=== PATIENT | male | born 1990 | race Caucasian/White ===

== ENCOUNTER 2023-10-24 13:00 | Emergency (ER) | payer MEDICAID ==
[~2023-10-24] VITALS: Ht 149.9 cm; Wt 70.0 kg
[2023-10-24 13:03] VITALS: O2SAT 98
[2023-10-24] MEDS: MORPHINE SULFATE 4 MG/ML INJ (FOR IV/IM USE) IV ONE (13:25)
[2023-10-24] MEDS: KETAMINE HCL 50 MG/ML 10ML IV ONE (13:45)
[2023-10-24 14:35] VITALS: TEMP 98.5
[2023-10-24] MEDS: POVIDONE-IODINE 10% TOPICAL SOLN 240ML TOP ONE (15:03)
[2023-10-24] MEDS: LIDOCAINE HCL 1% 20ML VIAL (Pyxis) INJ INFIL ONE (15:03)
[2023-10-24] MEDS: TETANUS AND DIPHTHERIA TOX/PF 0.5ML SYR (ADULT) IM ONE (15:13)
[2023-10-24] MEDS ORDERED: ACET-2708 MT (15:18)
[2023-10-24] MEDS ORDERED: IBUP-2030 MT (15:18)
[2023-10-24 16:10] VITALS: BP 138/86; PULSE 80; RESP 16
== END 2023-10-24 16:24 | disposition home or self-care (01) ==
LOC: ER 13:00
DX: S62.307A Unspecified fracture of fifth metacarpal bone, left hand, initial encounter for closed fracture (principal); W18.39XA Other fall on same level, initial encounter; Y93.89 Activity, other specified; Y92.89 Other specified places as the place of occurrence of the external cause; Y99.8 Other external cause status
CPT/HCPCS: 73090; 73110; 73130; 90714; 12002; 90471; 96374; 96375; 99291; J3490; J2270; Z7610 ×3

== ENCOUNTER 2023-11-18 13:40 | Emergency (ER) | payer MEDICAID ==
[~2023-11-18] VITALS: Ht 154.9 cm; Wt 72.0 kg
[~2023-11-18 13:40] MED LIST: ACET-2708 MT; IBUP-2030 MT
[2023-11-18 13:45] VITALS: BP 135/95; PULSE 104; RESP 18; TEMP 98.1; O2SAT 98
[2023-11-18 16:39] LABS: BASOPHILS % 0.4 % (0.0-2.0); EOSINOPHILS % 0.5 % (0.0-5.0); LYMPHOCYTES % 32.1 % (20.0-50.0); MEAN CORPUSCULAR HEMOGLOBIN 31.6 pg (28.0-32.0); MEAN CORPUSCULAR HGB CONC 34.1 g/dL (31.0-37.0); MEAN CORPUSCULAR VOLUME 92.7 fL (80.0-94.0); MEAN PLATELET VOLUME 7.3 fl (7.4-10.4); MONOCYTES % 7.3 % (2.0-8.0); NEUTROPHILS % 59.7 % (40.0-76.0); PLATELET 400 x1000/uL (130-400); RED BLOOD CELL COUNT 4.42 mill/uL (4.7-6.1); RED CELL DISTRIBUTION WIDTH 13.6 % (11.6-14.6); WHITE BLOOD COUNT 5.9 x1000/uL (4.5-11.0)
[2023-11-18 16:43] LABS: CARBON DIOXIDE 29 mEq/L (21-32); CHLORIDE 103 mEq/L (98-107); SODIUM 137 mEq/L (136-145)
[2023-11-18 16:48] LABS: CREATININE 0.9 mg/dL (0.6-1.3)
[2023-11-18 16:49] LABS: GLUCOSE 87 mg/dL (70-105); UREA NITROGEN BLOOD 7 mg/dL (9-23)
[2023-11-18] MEDS ORDERED: CEPH500C2 MT (18:40)
[2023-11-18] MEDS ORDERED: SULF1TAB48 MT (18:40)
[2023-11-18] MEDS: BACITRACIN ZINC OINT UDPKT TOP ONE (18:59)
== END 2023-11-18 19:02 | disposition home or self-care (01) ==
LOC: ER 13:40
DX: S61.213D Laceration without foreign body of left middle finger without damage to nail, subsequent encounter (principal); M79.89 Other specified soft tissue disorders; X58.XXXD Exposure to other specified factors, subsequent encounter
CPT/HCPCS: 80048; 85025; 36415; 29125; 99283; Z7610